=== PATIENT | male | born 1940 | race Caucasian/White ===

== ENCOUNTER 2017-05-10 02:25 | Day surgery (SDC) | payer MEDICARE, BC ==
[~2017-05-10] VITALS: Ht 172.7 cm; Wt 68.9 kg
[~2017-05-10 02:25] MED LIST: ACE325 PO; AMI25 PO; ASPI-1471 PO; ASPI-715 PO; ATOR40TA24 PO; BENA1TAB PO; BETA1CAP PO; BICA50TA36 PO; CHL10 PO; CIP500 PO; CIPR-214 PO; ENAL1TAB52 PO; FOL1 PO; GOLYTE PO; IBUP400T13 PO; LISI-362 PO; MULT-1 PO; MULT-27 PO; NOR5/325 PO; OMEG300C PO; SEN100 PO; SERT-179 PO; SIMV-1 PO; TAMS0.4C70 PO; [UNRECOGNIZED DRUG - CODE] PO; [UNRECOGNIZED DRUG - CODE] PO; [UNRECOGNIZED DRUG - MIXTURE] PO
[2017-05-10 06:13] VITALS: BP 123/61
[2017-05-10] MEDS ORDERED: LIDOCAINE/SOD BICARB 8.4% SYR ID ONE (06:50)
[2017-05-10] MEDS ORDERED: NORMOSOL R SOLN(*) 1000 ML BAG 1,000 ML IV PRN (06:50)
[2017-05-10] MEDS ORDERED: MIDAZOLAM 2 MG/2 ML VIAL IVP PRN (06:50)
[2017-05-10 08:39] VITALS: BP 132/70
[2017-05-10 08:45] VITALS: BP 137/69
--- NOTE | 2017-05-10 08:49 | Short(Outpt) Discharge Summary ---
Discharge Summary Reason for Hosp/Final Diag: (1) History of colon polyps Status: Chronic Hospital Course & Plan: Colonoscopy with polypectomy x6 completed without problems Departure Discharge to: Home, Self Care Discharge Instructions Home Meds Active Scripts Peg/Electrolytes (GOLYTELY SOLUTION) 4,000 Ml Soln, 1 GAL PO ONCE, #1 GAL 0 Refills Prov:MYLES HERNÁNDEZ MD 04/01/17 Reported Medications Aspirin (ASPIR 81) 81 Mg Tablet.dr, 81 MG PO QDAY, TAB 04/01/17 Mu-Vits-Min Th/Lycopene/Lutein (CENTRUM SILVER TABLET) 1 Each Tablet, 1 EACH PO QDAY 03/29/17 Lisinopril (LISINOPRIL) 10 Mg Tablet, 10 MG PO PRN, TAB take if systolic >150 03/01/16 Oliver-3 Fatty Acids (FISH OIL) 300 Mg Capsule, 300 MG PO DAILY, CAPSULE 08/08/15 Chlordiazepoxide Hcl (CHLORDIAZEPOXIDE HCL) 10 Mg Capsule, 10 MG PO HS, CAPSULE 08/08/15 Atorvastatin Calcium (LIPITOR) 40 Mg Tablet, 2 TAB PO QDAY, TAB 08/08/15 Amitriptyline Hcl (Elavil) 25 Mg Tab, 25 MG PO QHS, #30 0 Refills 11/21/10 Sertraline Hcl (Sertraline Hcl) 100 Mg Tablet, 100 MG PO DAILY, 0 Refills 11/03/10 Diet: Regular Activity: As Tolerated Special Instructions: Your colonoscopy was completed without any problems and your prep was excellent (Good Job!!). I removed 6 small polyps from your colon and rectum. None look cancerous but may be precancerous. My office will call you in the next week and let you know what the polyps are and when your next colonoscoy should be (either 3 or 5 years depending on the pathology results). MYLES HERNÁNDEZ MD May 10, 2017 08:49
[2017-05-10 09:01] VITALS: BP 140/61
[2017-05-10 09:31] VITALS: BP 119/76
[2017-05-10 09:34] VITALS: BP 133/100
== END 2017-05-10 09:48 | disposition home or self-care (01) ==
LOC: OR 02:25
PROVIDERS: ATTEND Surgery
DX: Z12.11 Encounter for screening for malignant neoplasm of colon (principal); D12.3 Benign neoplasm of transverse colon; K63.5 Polyp of colon; K62.1 Rectal polyp
CPT/HCPCS: 88305

== ENCOUNTER 2017-06-12 15:05 | Outpatient (RCR) | payer MEDICARE, BC ==
[2017-06-17] MEDS ORDERED: IOPAMIDOL 76% 50 ML INFUS BTL 50 ML ONE (07:47)
[2017-06-17] MEDS ORDERED: IOPAMIDOL 76% 75 ML INFUS BTL 75 ML ONE (07:47)
[2017-06-17] MEDS ORDERED: NS 0.9% 20 ML SDV 60 ML ONE (07:48)
--- NOTE | 2017-06-21 10:26 | RADIOLOGY IMAGING REPORT ---
FACILITY: [facility] [place] PATIENT NAME: Vikash Grijalva : 1940 MR: [id number] V: [id number] EXAM DATE: ORDERING PHYSICIAN: ELIAS GREGG TECHNOLOG[place]: [place] [facility] [place] Vikash G[place]alva : 1940 Visit/Account:[id number] Date of Sevice: 06/17/2017 ABDOMEN/PELVIS W/WO CONTRAST HISTORY: Hematuria TECHNIQUE: Axial images acquired through the abdomen/pelvis both with and without IV contrast.. Afia nal and sagittal reformatting also performed. Dose Lowering Technique One of the following dose optimization techniques was utilized in the performance of this exam: Autom ated exposure control; adjustment of the mA and/or kV according to the patient's size; or use of an i terative reconstruction technique. Specific details can be referenced in the facility's radiology C T exam operational policy. CONTRAST: 125 mL Isovue-370 COMPARISON: March 31, 2016 FINDINGS: Visualized lung bases: There are at least moderate coronary artery vascular calcifications incomplet nicky imaged is a potential nodule in the anterior inferior right upper lobe seen on image one of serie s 5. There is coarse septal thickening in the lower lung fuller. Hepatobiliary: Negative. Spleen: Negative. Adrenals: Negative. Pancreas: Negative. Kidneys ureters and bladder: The previously noted 1.4 cm hypoattenuating lesion in the mid left kidne y has slightly increased in size measuring 1.6 cm in diameter. This was apparently demonstrated to r epresent hemorrhagic or proteinaceous cyst on a prior MR. There is a 2.5 cm cyst upper pole the left kidney there are additional smaller cysts in both kidneys. There is a 1.3 x 0.8 cm stone in the right renal pelvis with mild fullness of the right renal collect ing system. There also appears to be slight increased density of the right peripelvic fat and fat st randing surrounding the proximal half of the right ureter Genitalia: There are coarse calcifications within the prostate gland GI: There is mild narrowing seen in the sigmoid colon best identified on image 121 of series 6. Thi s could represent an area of spasm although a small annular lesion not totally ruled out Vessels/spaces/nodes: There are moderate vascular calcifications and mild mural thrombus in the abdo corie aorta. Moderate callus occasions also noted in the branch vessels. Bones/soft tissues: There is a tiny umbilical hernia containing fat. Mild spondylotic changes of th e thoracolumbar spine Additional findings: None pertinent. IMPRESSION: There is a 1.3 x 0.8 cm stone in the right renal pelvis with mild fullness the right renal collecting system. There also appears to be slight increased density in the peripelvic fat on the right and fa t stranding surrounding the proximal half the right ureter. This could represent adjacent inflammati on and/or infection. Previously noted 1.4 cm hypoattenuating lesion mid left kidney is slightly increased in size now cb uring 1.6 centers in diameter. This was apparently demonstrated represent hemorrhagic or proteinaceo us cyst on a prior MR. Coarse septal thickening in the lower lung fuller likely chronic At least moderate vascular calcifications in the abdominal aorta and branch vessels also including th e coronary arteries Mild narrowing in the sigmoid colon as described above. This could represent an area of spasm althou gh small annular lesion not totally ruled out Report Dictated By: Hailey Nagy MD at 06/17/2017 10:54 AM Report E-Signed By: Hailey Nagy MD at 06/17/2017 11:22 AM WSN:[email or web address]
== END 2017-06-17 18:00 | disposition home or self-care (01) ==
LOC: CT 15:05
PROVIDERS: ATTEND Urology
DX: R31.0 Gross hematuria (principal); C61 Malignant neoplasm of prostate; Z92.3 Personal history of irradiation; N20.0 Calculus of kidney; I70.0 Atherosclerosis of aorta; N28.9 Disorder of kidney and ureter, unspecified
CPT/HCPCS: 36415; 74178; 82565; 87088; J7050; Q9967

== ENCOUNTER → 2017-06-12 | Outpatient (REF) | payer MEDICARE, BC | LOC: ZZSENDIN 17:29 | PROVIDERS: ATTEND Urology | DX: R31.1 Benign essential microscopic hematuria (principal) | CPT/HCPCS: 87088 ==

== ENCOUNTER 2017-06-24 00:54 | Day surgery (SDC) | payer MEDICARE, BC ==
--- NOTE | 2017-06-21 14:21 | HISTORY AND PHYSICAL ---
DATE OF ADMISSION: June 24, 2017 CHIEF COMPLAINT Right ureteral calculus and hematuria. HISTORY OF PRESENT ILLNESS The patient is a 77-year-old white male who was diagnosed with prostate cancer in early 2014 and subsequently underwent treatment with radiation therapy and androgen deprivation therapy for 18 months, who in routine follow up was noted to have significant microscopic hematuria. A CT scan was performed, which showed a 13 x 10 x 7 mm right renal pelvis/UPJ stone. The films were shown to the patient, his and daughter, and options were discussed. He has elected to undergo anesthetic cystoscopy to evaluate his bladder, as well as to undergo ureteral stent placement followed by ureteroscopy and/or extracorporeal shockwave lithotripsy. Of note, the patient had a prior CT scan performed in March of 2016, which showed no prior stones at that time. PAST MEDICAL HISTORY * Prostate cancer with current no evidence of disease. * Hypercholesterolemia. * Hypertension. * COPD. * Irritable bowel syndrome. * Depression. PAST SURGICAL HISTORY * Colonoscopy. * Hand surgery. CURRENT MEDICATIONS * Oxygen. * Hydrochlorothiazide. * Amitriptyline. * Lipitor. * Lisinopril. * Sertraline. * Baby aspirin. * Fish oil. ALLERGIES No known drug allergies. FAMILY HISTORY Noncontributory. SOCIAL HISTORY Patient lives in [place], [place]. He is . He does have tobacco use. REVIEW OF SYSTEMS Patient denies shortness of breath, nausea, vomiting, fever, chills, chest pain , productive cough, gross hematuria, prior history of stones or urinary tract infection. He does report mild right flank pain intermittently over the past several weeks. PHYSICAL EXAMINATION GENERAL: Patient is a well-developed, well-nourished white male in no acute distress. HEENT: Normocephalic, atraumatic. CHEST: Clear to auscultation bilaterally. CARDIOVASCULAR EXAM: Regular rate and rhythm. ABDOMINAL EXAM: Soft, nontender, no masses are palpated. EXAM: Deferred to the OR. EXTREMITY EXAM: Without clubbing, cyanosis or edema. NEUROLOGICAL EXAM: Nonfocal. IMPRESSION This is a 77-year-old white male with a new onset of microscopic hematuria found to have a large left UPJ/renal pelvis stone. In addition, he has smoking history and is two years status radiation treatment for his prostate. PLAN We will perform anesthetic cystoscopy with bladder biopsy as indicated followed by right ureteral stent placement with ESWL and/or ureteroscopy as indicated. MTDD
[~2017-06-24] VITALS: Ht 172.7 cm; Wt 68.5 kg
[2017-06-24 14:15] VITALS: BP 153/81
[2017-06-24] MEDS ORDERED: ceFAZolin(*) 1 GM VIAL 1 GM in NS(*) 0.9% 100 ML ADDVANT BAG 100 ML IVPB ONE (15:20)
[2017-06-24] MEDS ORDERED: LIDOCAINE/SOD BICARB 8.4% SYR ID ONE (15:20)
[2017-06-24] MEDS ORDERED: NORMOSOL R SOLN(*) 1000 ML BAG 1,000 ML IV PRN (15:20)
[2017-06-24] MEDS ORDERED: FAMOTIDINE 20 MG TAB PO ONE (15:20)
[2017-06-24] MEDS ORDERED: MIDAZOLAM 2 MG/2 ML VIAL IVP PRN (15:20)
--- NOTE | 2017-06-24 15:56 | RADIOLOGY IMAGING REPORT ---
[place] [facility] [place] NAME: Vikash Grijalva : 1940 MR: [id number] V: [id number] EXAM DATE: ORDERING PHYSICIAN: ELIAS GREGG TECHNOLOGIST: Location: [facility] Patient: Vikash Grijalva : 1940 Visit/Account:[id number] Date of Sevice: 06/24/2017 ABDOMEN PELVIS ESWL CYSTO W/O HISTORY: Kidney stones TECHNIQUE: Axial images were obtained through the abdomen and pelvis without intravenous contrast . One of the following dose optimization techniques was utilized in the performance of this exam: autom ated exposure control; adjustment of the mA and/or kv according to patient size; or use of iterative reconstruction technique. Specific details can be referenced in the facility's radiology CT exam oper ational policy. CONTRAST: None COMPARISON: CT 06/17/2017 FINDINGS: Visualized lung bases: Mild basilar reticular opacities and platelike atelectasis. Hepatobiliary: Negative. Spleen: Negative. Adrenals: Negative. Pancreas: Negative. Kidneys/ureters/bladder: Prior 11 x 9 x 8 mm calculus within the right renal pelvis has migrated to the right UPJ with mild right hydronephrosis. Mild right perinephric stranding. There are 3 tiny no nobstructing left renal calculi measuring up to 1-2 mm. No left ureteral calculus. No left hydronep hrosis. No bladder calculus. Simple appearing left upper pole renal cyst measuring 2.6 x 2.0 cm. H igh attenuation left lower pole lesion measuring 1.7 x 1.6 cm which is likely a hemorrhagic cyst. Bowel/peritoneum/mesentery: Negative. Vessels: Mild arterial calcifications. Lymph nodes: Negative. Pelvic genitourinary: Negative. Bones/body wall: Negative. Other findings: None significant IMPRESSION: 1. A prior 11 x 9 x 8mm calculus within the right renal pelvis has migrated to the right UPJ with mi ld right hydronephrosis and perinephric stranding. Report Dictated By: Rick Pérez MD at 06/24/2017 3:35 PM Report E-Signed By: Rick Pérez MD at 06/24/2017 3:51 PM WSN:[email or web address]
[2017-06-24] MEDS ORDERED: fentaNYL CITR 100 MCG/2 ML AMP ONE (16:12)
[2017-06-24] MEDS ORDERED: LIDOCAINE MPF 1% 5 ML VIAL ONE (16:13)
[2017-06-24] MEDS ORDERED: PROPOFOL EMUL(*) 10MG/ML 20 ML 20 ML ONE (16:13)
[2017-06-24] MEDS ORDERED: DEXAMETHASONE SOD 4 MG/ML VIAL ONE (17:54)
[2017-06-24] MEDS ORDERED: ONDANSETRON 4 MG/2 ML VIAL ONE (17:55)
[2017-06-24] MEDS ORDERED: KETOROLAC 30 MG/ML VIAL ONE (19:03)
[2017-06-24] MEDS ORDERED: PHEN200T32 PO (19:53)
[2017-06-24] MEDS ORDERED: TAMS0.4C25 PO (19:54)
[2017-06-24] MEDS ORDERED: OXYB10TA21 PO (19:54)
[2017-06-24] MEDS ORDERED: HYDR-385 PO (19:55)
[2017-06-24] MEDS ORDERED: DOCU-416 PO (19:56)
[2017-06-24 20:00] VITALS: BP 167/75
[2017-06-24 20:15] VITALS: BP 145/77
[2017-06-24 20:26] VITALS: BP 135/77
[2017-06-24 20:29] VITALS: BP 134/60
--- NOTE | 2017-06-25 18:49 | OPERATIVE REPORT 1 ---
EVENT DATE: June 24, 2017 SURGEON: Pascual Bradford MD ANESTHESIOLOGIST: Delfin Redd MD ANESTHESIA: General anesthetic. PREOPERATIVE DIAGNOSIS Right renal pelvis 13 x 10 x 7 mm stone. POSTOPERATIVE DIAGNOSIS Right renal pelvis 13 x 10 x 7 mm stone. PROCEDURES PERFORMED 1. Cystoscopy. 2. Right retrograde internal double-J ureteral stent placement. 3. Right renal extracorporeal shock wave lithotripsy. ESTIMATED BLOOD LOSS Minimal. INTRAVENOUS FLUIDS Crystalloid. DRAINS Contour stent 6-Austrian x 26 cm on right. PATHOLOGY None. COMPLICATIONS None. CONDITION The patient was taken to the recovery room awake and in stable condition. STATEMENT OF MEDICAL NECESSITY The patient is a 77-year-old white gentleman with a history of prostate cancer who recently noted an episode of significant microscopic hematuria on routine followup in the clinic. A CT scan performed showed a 13 x 10 x 7 mm right UPJ stone. He is now being brought to the operating room for planned stent placement, followed by extracorporeal shock wave lithotripsy. DESCRIPTION OF PROCEDURE PERFORMED The patient was brought to the operating room. After general anesthetic was obtained, he was placed in the dorsal lithotomy position and prepped and draped in the usual sterile manner. Anesthetic cystoscopy was performed with the 21- Austrian rigid sheath and both 30- and 70-degree lenses. He had a normal- appearing, pendulous bulbar membranous and prostatic urethra. His bladder neck was widely open. There were no significant abnormalities noted in the urethra. His bladder mucosa appeared normal. It was smooth, without lesions or abnormalities. He had slit-like ureteral orifices, both effluxing clear urine. At this point, the right ureteral orifice was cannulated with a 6-Austrian open- end access catheter which was advanced up to the mid ureter. A 0.035 wire was advanced up the lumen of the access catheter and coiled in the upper pole calyx by fluoroscopic imaging. The access catheter was removed, and the wire was then used to place a 6-Austrian x 26 cm Contour stent. The wire was removed. He was noted to have good coiling in the renal pelvis by fluoroscopy and good coiling in the bladder by direct vision. The patient's bladder was drained through the cystoscopic sheath. He was then placed supine on the lithotripsy table. His right renal pelvis stone was in place in the lithotripsy crosshairs in two planes. Treatment was begun at a power setting of 3 for the first 300 shocks. A three-minute pause was then performed, and then treatment resumed. He received a total of 3000 shocks to the right renal pelvis. Intermittent two- plane fluoroscopy was used to ensure the crosshairs remained on the stone and stone fragment pile. At the conclusion of treatment, no significant fragments could be identified. He was then awakened in the operating room and taken to the recovery area in stable condition. PLAN The plan is to allow the patient to be discharged home today on [place], Colace, Flomax, Ditropan XL, and Pyridium. We will plan to see him in the Urology Clinic in six to eight weeks with a followup low-dose CT scan to evaluate treatment results. If he is deemed stone-free, we will remove his stent in the office. If not, we will return to the operating room for possible ureteroscopy or ESWL as indicated with stent removal at that time. OMERO
== END 2017-06-24 20:00 | disposition home or self-care (01) ==
LOC: OR 00:54
PROVIDERS: ATTEND Urology
DX: N20.0 Calculus of kidney (principal)
CPT/HCPCS: 50590; 52332; 74176; A9270; C1758; C1769; C1894; C2617; J0690; J1100; J1885; J2001; J2405; J2704; J3010; J7050

== ENCOUNTER → 2017-08-06 | Outpatient (CLI) | payer MEDICARE, BC ==
[~2017-08-06] MED LIST changes: +DOCU-416 PO; +HYDR-385 PO; +OXYB10TA21 PO; +PHEN200T32 PO; +TAMS0.4C25 PO
--- NOTE | 2017-08-06 08:47 | RADIOLOGY IMAGING REPORT ---
FACILITY: [facility] [place] PATIENT NAME: Vikash Grijalva : 1940 MR: [id number] V: [id number] EXAM DATE: ORDERING PHYSICIAN: ELIAS GREGG TECHNOLOGIST: Location: [facility] [place] Patient: Vikash Grijalva : 1940 Visit/Account:[id number] Date of Sevice: 08/06/2017 ABDOMEN PELVIS ESWL CYSTO W/O EXAMINATION: CT abdomen without IV contrast CT pelvis with IV contrast HISTORY: Status post ESWL TECHNIQUE: CT scan of the abdomen and pelvis performed from the lung base through pubic symphysis fol lowed by scan from lung base through pubic symphysis after administration of IV contrast. COMPARISON STUDIES: 06/24/2017 One of the following dose optimization techniques was utilized in the performance of this exam: Autom ated exposure control; adjustment of the mA and/or kV according to the patient's size; or use of an i terative reconstruction technique. Specific details can be referenced in the facility's radiology C T exam operational policy. FINDINGS: Please note that this exam was tailored for detection of urinary stones. Portions of the upper abdome n may not be included. Also, with intravenous contrast, sensitivity to detection of parenchymal disea se is limited. Liver/Biliary: Negative Pancreas: Negative Spleen: Negative Adrenal glands: Negative Kidneys/Retroperitoneum: Double-J ureteral stent within the right kidney. Mild persistent right hydr onephrosis. Persistent perinephric stranding and periureteral stranding and inflammation along the c ourse of the ureter similar to the previous CT scan from 06/24/2017. The previously seen and describe d 11 mm stone in the right renal pelvis is no longer evident. No obvious stone fragments evident wit hin the collecting system or ureter. Several small perceived 2 mm punctate densities in middle and l ower pole calyceal groups best seen on coronal image 81. Several small nonobstructing 3 mm stones in the left kidney. Simple appearing cyst projecting from t he upper pole of the left kidney measuring 2.3 cm. There is also a hyperdense lesion projecting from the cortex of the left kidney in the lower pole measuring approximately 1.7 cm in greatest dimension . It is increased attenuation and likely represents a proteinaceous/hemorrhagic cyst. Pelvic structures: Negative Bowel/peritoneum/mesenteries: No colonic mass lesions. No bowel inflammation. Vessels: Minimal focal aneurysmal dilatation of the infrarenal aorta measuring up to 2.5 cm in dimens ion Musculoskeletal/body wall: Negative Lymph node assessment: Negative Lower chest: Negative IMPRESSION: 1. Previously seen and described 11 mm right renal pelvic stone no longer visualized with a right ur eteral stent well-positioned within the kidney. 2. Several punctate 2 mm parenchymal densities within the mid and lower pole calyceal system. 3. Nonobstructing 2 -3 mm stones in the left kidney Report Dictated By: Marky Machuca MD at 08/06/2017 8:33 AM Report E-Signed By: Marky Machuca MD at 08/06/2017 8:43 AM QUIRINON:BELÉN
== END ==
LOC: CT 02:27
PROVIDERS: ATTEND Urology
DX: N20.0 Calculus of kidney (principal); Z96.0 Presence of urogenital implants
CPT/HCPCS: 74176

== ENCOUNTER → 2017-08-07 | Outpatient (REF) | payer MEDICARE, BC | LOC: ZZSENDIN 11:00 | PROVIDERS: ATTEND Urology | DX: N20.0 Calculus of kidney (principal) | CPT/HCPCS: 82365; 88300 ==

== ENCOUNTER → 2017-08-09 | Outpatient (CLI) | payer MEDICARE, BC | LOC: RESP 05:45 | PROVIDERS: ATTEND Family Medicine | DX: J44.9 Chronic obstructive pulmonary disease, unspecified (principal) | CPT/HCPCS: 94060; 94729 ==

== ENCOUNTER → 2017-10-01 | Outpatient (CLI) | payer MEDICARE, BC | LOC: LAB 13:05 | PROVIDERS: ATTEND Urology | DX: C61 Malignant neoplasm of prostate (principal); N20.0 Calculus of kidney | CPT/HCPCS: 36415; 84153 ==

== ENCOUNTER → 2017-10-03 | Outpatient (RCR) | payer MEDICARE, BC ==
[~2017-10-03] MED LIST changes: +AMIT-106 PO
== END ==
LOC: RESP 08-29 15:06
PROVIDERS: ATTEND Family Medicine
DX: J98.09 Other diseases of bronchus, not elsewhere classified (principal); R09.02 Hypoxemia
CPT/HCPCS: 94618; G0239

== ENCOUNTER 2017-10-08 10:41 | Outpatient (RCR) | payer MEDICARE, BC ==
[~2017-10-08 10:41] MED LIST changes: -AMIT-106 PO
[2017-10-08] MEDS ORDERED: AMIT-106 PO (15:06)
[2017-10-08] MEDS ORDERED: CHL10 PO (15:06)
== END 2017-10-22 09:50 | disposition home or self-care (01) ==
LOC: RAON 10:41
PROVIDERS: ATTEND Radiology Radiation Oncology
DX: C61 Malignant neoplasm of prostate (principal)
CPT/HCPCS: 99212

== ENCOUNTER → 2017-10-09 | Outpatient (CLI) | payer MEDICARE, BC ==
[~2017-10-09] MED LIST changes: +AMIT-106 PO
--- NOTE | 2017-10-09 10:44 | RADIOLOGY IMAGING REPORT ---
FACILITY: [facility] PATIENT NAME: Vikash Grijalva : 1940 MR: [id number] V: [id number] EXAM DATE: ORDERING PHYSICIAN: ELIAS GREGG TECHNOLOGIST: Location: [facility] Patient: Vikash Grijalva : 1940 Visit/Account:[id number] Date of Sevice: 10/09/2017 ABDOMEN PELVIS ESWL CYSTO W/O HISTORY: Prostate cancer, kidney stones TECHNIQUE: Axial images acquired through the abdomen/pelvis. Coronal and sagittal reformatting also performed. No IV contrast administered. Dose Lowering Technique One of the following dose optimization techniques was utilized in the performance of this exam: Autom ated exposure control; adjustment of the mA and/or kV according to the patient's size; or use of an i terative reconstruction technique. Specific details can be referenced in the facility's radiology C T exam operational policy. COMPARISON: August 06, 2017 FINDINGS: Visualized lung bases: There is coarse linear scarring in the lung bases Hepatobiliary: Negative. Spleen: Negative. Adrenals: Negative. Pancreas: Negative. Kidneys ureters and bladder: The previously noted right ureteral stent is no longer seen. There is a 2 mm nonobstructing calculus upper pole calyx of the right kidney a 1 mm nonobstructing calculus mid pole calyx of the right kidney and a 1 mm nonobstructing calculus lower pole calyx of the right kid avila. There is a 1 mm nonobstructing calculus upper pole calyx of the left kidney and 2 mm and 1 mm obstruc ting calculi lower pole calyces of the left kidney. 2.4 cm simple cyst upper pole of the left kidney again noted. There is a 1.7 cm hyperdense mass proj ecting from the lower pole of the left kidney that appears stable when compared to most recent study. . When compared to prior CT from April 16, 2012 this has increased in size from 1 cm previously. This has however been previously demonstrated to represent hemorrhagic or proteinaceous cyst by prior MR the abdomen dated June 21, 2014 Genitalia: There are coarse calcifications within the inhomogeneous prostate gland GI: The appendix is mildly thickened at 7.5 mm although no surrounding inflammatory changes seen. T his appears stable when compared the prior study likely represents a chronic finding Vessels/spaces/nodes: There are moderate vascular calcifications seen throughout the abdomen and pel vis. Small focal dilatation of the infrarenal abdominal aorta measuring 2.5 cm in diameter appears s table Bones/soft tissues: There is a tiny umbilical hernia containing fat. No aggressive appearing bone l esions are seen. Additional findings: None pertinent. IMPRESSION: Nonobstructing calculi in both renal collecting systems 2.4 cm simple cyst upper pole the left kidney 1.7 cm hyperdense mass lower pole the left kidney has increased in size when compared to chest 12 alt beau has been shown previously to represent hemorrhagic or proteinaceous cyst by prior MR. The appendix is mildly thickened at 7.5 mm although no surrounding inflammatory changes seen. This a ppears stable when compared to the prior study likely representing a chronic finding Moderate vascular calcifications about the abdomen and pelvis. Small focal dilatation of infrarenal abdominal aorta has remained stable Report Dictated By: Hailey Nagy MD at 10/09/2017 10:18 AM Report E-Signed By: Hailey Nagy MD at 10/09/2017 10:41 AM WSN:[email or web address]
== END ==
LOC: CT 01:26
PROVIDERS: ATTEND Urology
DX: N20.0 Calculus of kidney (principal); R91.8 Other nonspecific abnormal finding of lung field; N28.1 Cyst of kidney, acquired; N42.0 Calculus of prostate; I25.10 Atherosclerotic heart disease of native coronary artery without angina pectoris; K42.9 Umbilical hernia without obstruction or gangrene
CPT/HCPCS: 74176

== ENCOUNTER → 2017-11-12 | Outpatient (RCR) | payer MEDICARE, BC | LOC: RESP 10-08 09:00 | PROVIDERS: ATTEND Family Medicine | DX: J98.09 Other diseases of bronchus, not elsewhere classified (principal); R09.02 Hypoxemia | CPT/HCPCS: 94618; 94667; G0239 ==

== ENCOUNTER 2018-04-02 08:19 | Outpatient (RCR) | payer MEDICARE, BC ==
[~2018-04-02 08:19] MED LIST changes: -BICA50TA36 PO; +BICA50TA41 PO
--- NOTE | 2018-04-08 15:02 | RADIOLOGY IMAGING REPORT ---
FACILITY: [facility] PATIENT NAME: Vikash Grijalva : 1940 MR: [id number] V: [id number] EXAM DATE: ORDERING PHYSICIAN: ELIAS GREGG TECHNOLOGIST: Location: [facility] Patient: Vikash Grijalva : 1940 Visit/Account:[id number] Date of Sevice: 04/08/2018 ABDOMEN PELVIS ESWL CYSTO W/O Indication: History of prostate cancer, kidney stones. COMPARISON STUDIES: CT abdomen and pelvis 10/09/2017. TECHNIQUE: Noncontrast CT lung bases to the pubic symphysis obtained. One of the following dose optimization techniques was utilized in the performance of this exam: autom ated exposure control; adjustment of the mA and/or kV according to the patient's size; or use of an i terative reconstruction technique. Specific details can be referenced in the facility's radiology CT exam operational policy. FINDINGS: Liver / gallbladder: The liver demonstrates normal attenuation. Gallbladder is unremarkable. Pancreas: Pancreas is unremarkable. Spleen: Normal. Adrenal glands: Normal. Kidneys: There is a simple cyst upper pole of the left kidney, 2.6 cm. In the lower pole, there is an exophytic mass, 1.7 cm, which is similar to prior CT 03/31/2016 consistent with a proteinaceous cy st. There is no suspicious mass. Right kidney is normal. There are 2 small calculi on the right kidney, each measuring between 1 and 2 mm. There is a nonobst ructing 2 mm calculus in the left kidney. There is no evidence of a right or left ureteral calculus. Pelvis: Urinary bladder is normal. Small calcifications in the prostate. There is no evidence of a denopathy in the right or left internal or external iliac chain. Bowel: There is no focal abnormality in the small bowel or colon. Vessels: Atherosclerotic changes seen in the abdominal aorta and arteries of the pelvis. Musculoskeletal / Body wall: There are no lytic or blastic bone lesions. Soft tissues are normal. Lymph node assessment: Negative Lower chest: Negative IMPRESSION: 1. Simple cyst and proteinaceous cyst left kidney, unchanged from 03/31/2016. 2. Atherosclerotic changes abdominal aorta. 3. No evidence of retroperitoneal or pelvic adenopathy. Report Dictated By: Reggie Magallanes at 04/08/2018 2:50 PM Report E-Signed By: Reggie Magallanes at 04/08/2018 2:57 PM WSN:[email or web address]
== END 2018-04-08 18:00 | disposition home or self-care (01) ==
LOC: CT 08:19 → EDSTATUS 08:19 → CT 04-08 18:00
PROVIDERS: ATTEND Urology
DX: N20.0 Calculus of kidney (principal); C61 Malignant neoplasm of prostate
CPT/HCPCS: 36415; 74176; 84153

== ENCOUNTER 2018-09-23 11:15 | Outpatient (RCR) | payer MEDICARE, BC ==
--- NOTE | 2018-08-12 12:53 | PT INITIAL EVALUATION ---
MEDICAL DIAGNOSIS: M25.511 R shoulder pain TREATMENT DIAGNOSIS: Same DATE OF ONSET: 02/09/18 SUBJECTIVE: Vikash Grijalva (Ed) presents to PT for R upper shoulder pain after attempting to lift his , who fell at home 02/09/2018. He reports he'd strained both shoulders, the L shoulder pain resolved but he's left with lingering R UT ache. Quick DASH 7%. He's left-handed.. . Pain location is R superior shoulder and described as ache. Pain scale is 4 on a ten point pain scale. Pain is worse with turning onto R side in bed, trying to sleep and better with rest. 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 Participates in pulmonary rehab, independent in all ADL's. OBJECTIVE: Posture: R scapula is 2" higher than L, more protracted R shoulder compared to L. ROM: Shoulder AROM, in degrees, flexion R 125, L 135, scaption R 125, L 150, ER B 80 deg, IR B T8. Thoracic AROM restricted in R rotation and R SB. Strength: B rotator cuffs, biceps 5-/5, no shoulder pain. Palpation: Painful, tight R LS, UT. Special Tests: R scapulothoracic joint bound at cuauhtemoc superior scapular angle and medial border, hypomobile R inferior, posterior glenohumeral joint. Negative crank, scour, AC joint clearing tests. ASSESSMENT: Vikash Grijalva presents with mild adhesive capsulitis, reduced spinal ROM, altered posture affecting R shoulder side lie loading. He had an improvement of AROM R shoulder after manual therapy today. Short Term Goals/Patient's Goals One month: Don rolls onto his R shoulder at night pain free. PLAN: Patient to be seen for Manual Therapy, Strengthening, Ice/Heat, Range of Motion, Stretching, Neuromuscular Re-ed, Electrical Stim, Gait Trg/Balance Trg, Home Exercise Program 2x/Week for 4 Weeks Thank you for this referral. If you have any questions, comments, or concerns about this report or plan, please contact me at . Physician signature date MTDD
--- NOTE | 2018-09-09 13:04 | PT PLAN OF CARE ---
Physician: Dr. Babak Dawkins Patient is being seen: 2x/week Therapist: Bernadette Quinn PT Medical Diagnosis: M25.511 R shoulder pain Treatment Diagnosis: Same Date of Onset: 02/09/18 Date of Initial Evaluation: 08/12/18 Date patient was last seen: 09/04/18 Number of treatments: 8 Number of cancellations/No shows: 0 INTERVENTIONS: Manual Therapy, Therapeutic Exercise, E-stim, Heat GOALS/PATIENT'S GOAL: One month: Ed rolls onto his R shoulder at night pain free. met New Goal: Ed lifts heavy groceries, does yard work without L shoulder pain. Patient Compliance: Excellent Prognosis: Excellent Reasons for continuing therapy: S: Ed reports his R shoulder no longer hurts at night. He's doing yard work but finds heavy lifting is difficult with his R shoulder. Quick DASH 2%. O: B shoulder AROM WNL, B pain free. Strength: R supraspinatus and infraspinatus 4+/5, otherwise R shoulder 5/5. Other: Improved L shoulder joints mobility, tight anterior chest muscles still. A/P: Don Grijalva has improved ROM, strength and is advancing function to heavy lifting, but finds this difficult. If you agree, we'll continue 2x/week for up to 4 weeks with higher level strengthening, strengthening, HEP. Thank you. Dr. Babak Dawkins date [facility]
--- NOTE | 2018-09-16 12:10 | PT PLAN OF CARE ---
Physician: Dr. Babak Dawkins Patient is being seen: 2x/week Therapist: Bernadette Quinn PT Medical Diagnosis: M25.511 R shoulder pain Treatment Diagnosis: Same Date of Onset: 02/09/18 Date of Initial Evaluation: 08/12/18 Date patient was last seen: 09/11/18 Number of treatments: 11 Number of cancellations/No shows: 0 INTERVENTIONS: Manual Therapy, Strengthening,, Ice/Heat, Range of Motion/Stretching, Electrical Stim, Home Exercise Program GOALS/PATIENT'S GOAL: One month: Ed rolls onto his R shoulder at night pain free. met Patient Compliance: Excellent Prognosis: Excellent Reasons for continuing therapy: S: Ed reports he can roll onto his R shoulder at night without pain. He's doing yard work without R shoulder pain. Posture: R scapula is even L. Quick DASH 0% impairment. ROM: R shoulder AROM, in degrees, flexion, scaption 155, ER 80 deg, IR T8. Strength: B ER, supraspinatus 5-/5, IR 5/5. Mobility: Improved shoulder joints mobility. A/P: Ed Valentine has improved ROM/flexibility, needs to continue strengthening, He needs exercise review for strengthening. If you agree, we'll continue another week to work HEP technique, then DC PT to HEP. Thank you. Dr. Babak Dawkins date [facility]
[~2018-09-23 11:15] MED LIST changes: +ERGO800010 PO; -[UNRECOGNIZED DRUG - CODE] PO
--- NOTE | 2018-09-24 08:57 | PT PLAN OF CARE ---
Physician: Dr. Babak Dawkins Patient is being seen: 2x/week Therapist: Bernadette Quinn PT Medical Diagnosis: M25.511 R shoulder pain Treatment Diagnosis: Same Date of Onset: 02/09/18 Date of Initial Evaluation: 08/12/18 Date patient was last seen: 09/23/18 Number of treatments: 13 Number of cancellations/No shows: 0 INTERVENTIONS: Manual Therapy, Strengthening, Range of Motion, Stretching, Home Exercise Program GOALS/PATIENT'S GOAL: One month: Ed rolls onto his R shoulder at night pain free. met Patient Compliance: Excellent Prognosis: Excellent Reasons for discontinuing therapy: S: Ed relates his R shoulder is pain free all the time, he can roll on it at night without pain. He's using his R shoulder as before his injury. Quick DASH 0% impairment. Posture: Even R shoulder posture compared to L. ROM: Shoulder AROM WNL all directions. Strength: B rotator cuffs, biceps improved to 5/5, no shoulder pain. Palpation: Unremarkable about the R shoulder. Special Tests: Improved R shoulder joint mobility. A/P: Ed Valentine has normalized L shoulder strength, ROM, joint mobility and no longer has R shoulder pain with ADL's, sleeping. I'll DC PT to HEP. Thank you. OMERO
== END 2018-09-23 18:00 | disposition home or self-care (01) ==
LOC: PT 11:15
PROVIDERS: ATTEND Family Medicine
DX: M25.511 Pain in right shoulder (principal)
CPT/HCPCS: 97010; 97110; 97140; 97161; G0283

== ENCOUNTER → 2018-09-24 | Outpatient (CLI) | payer MEDICARE, BC ==
[2018-09-24 08:35] LABS: PLATELET COUNT, AUTOMATED 197 K/uL (150-450)
--- NOTE | 2018-09-24 08:41 | EKG ---
FACILITY: [facility] PATIENT NAME: ROSETTA OCHOA : [id number] MR: [id number] V: [id number] EXAM DATE: ORDERING PHYSICIAN: MYLES CARLSON TECHNOLOGIST: MONTSERRAT Buckner Reason : PREOP-EYES Blood Pressure : / mmHG Vent. Rate : 061 BPM Atrial Rate : 061 BPM P-R Int : 164 ms QRS Dur : 102 ms QT Int : 420 ms P-R-T Axes : 043 004 047 degrees QTc Int : 422 ms Normal sinus rhythm Normal ECG No previous ECGs available Confirmed by JOAN BUTLER ([id number]) on 09/24/2018 7:00:11 PM Referred By: ROBYN Confirmed By:JOAN BUTLER
== END ==
LOC: LAB 08:14
PROVIDERS: ATTEND Anesthesiology
DX: Z01.812 Encounter for preprocedural laboratory examination (principal); Z01.810 Encounter for preprocedural cardiovascular examination; G24.5 Blepharospasm; H02.059 Trichiasis without entropion unspecified eye, unspecified eyelid
CPT/HCPCS: 36415; 82040; 82247; 82310; 82374; 82435; 82565; 82947; 84075; 84132; 84155; 84295; 84450; 84460; 84520; 85025; 93005

== ENCOUNTER 2018-10-19 15:54 | Emergency (ER) | payer MEDICARE, BC ==
--- NOTE | 2018-10-19 16:00 | ER Report ---
History and Physical Time Seen By MD: 16:00 HPI/ROS CHIEF COMPLAINT: Cough HISTORY OF PRESENT ILLNESS: Patient is a 78-year-old male here with complaints of cough, shortness of breath without chest pain. Patient does wear 3 L nasal cannula supplemental oxygen at baseline, is an active smoker. Patient denies using nebulizer treatments, inhalers at home. Patient reports several days he has become more short of breath than baseline. He does report a cough productive of vilchis sputum. Patient is afebrile, hemodynamically stable at time of evalu ation. REVIEW OF SYSTEMS: Constitutional: No fever, no chills. Eyes: No discharge. ENT: No sore throat. Cardiovascular: No chest pain, no palpitations. Respiratory: + cough, + shortness of breath. Gastrointestinal: No abdominal pain, no vomiting. Genitourinary: No hematuria. Musculoskeletal: No back pain. Skin: No rashes. Neurological: No headache. Allergies: Coded Allergies: No Known Drug Allergies (Verified , 10/19/18) Home Meds Active Scripts Albuterol Sulfate (PROVENTIL HFA) 6.7 Gm Inh, 2 PUFF INH Q4-6H PRN for DYSPNEA, #1 INH Prov:WARRENNIR HANEYLAS S DO 10/19/18 Prednisone (PREDNISONE) 50 Mg Tablet, 50 MG PO QDAY for 4 Days, #4 TAB Prov:WARRENNIRFRANK S DO 10/19/18 Azithromycin (ZITHROMAX) 250 Mg Tablet, 1 TAB PO QDAY for 4 Days, #4 TAB Prov:WARREN,FRANK S DO 10/19/18 Reported Medications Chlordiazepoxide Hcl (CHLORDIAZEPOXIDE HCL) 10 Mg Capsule, 10 MG PO HS, CAPSULE 10/08/17 Amitriptyline Hcl (AMITRIPTYLINE HCL) 25 Mg Tablet, 25 MG PO QHS, #5 TAB 10/08/17 Aspirin (ASPIR 81) 81 Mg Tablet.dr, 81 MG PO QDAY, TAB 04/01/17 Mu-Vits-Min Th/Lycopene/Lutein (CENTRUM SILVER TABLET) 1 Each Tablet, 1 EACH PO QDAY 03/29/17 Lisinopril (LISINOPRIL) 10 Mg Tablet, 10 MG PO PRN, TAB take if systolic >150 03/01/16 [place]-3 Fatty Acids (FISH OIL) 300 Mg Capsule, 300 MG PO DAILY, CAPSULE 08/08/15 Sertraline Hcl (Sertraline Hcl) 100 Mg Tablet, 100 MG PO DAILY, 0 Refills 11/03/10 Discontinued Reported Medications Docusate Sodium (COLACE) 100 Mg Capsule, 100 MG PO PRN, #30 CAPSULE 06/24/17 Tamsulosin Hcl (FLOMAX) 0.4 Mg Cap.er.24h, 0.4 MG PO PRN, CAP TAKE WITH FOOD 06/24/17 Hx Smoking: Yes (0.5 ppd) Smoking Status: Current: Every Day Smoker Exposure to Second Hand Smoke?: No Hx Substance Use Disorder: No Hx Alcohol Use: Yes (quit in 1983) Constitutional Vital Sign - Last 24 Hours 10/19/18 10/19/18 16:02 16:05 Temp 97.2 Pulse 71 Resp 20 B/P (MAP) 148/69 Pulse Ox 96 O2 Delivery Nasal Cannula O2 Flow Rate 3.0 Physical Exam General Appearance: The patient is alert, has no immediate need for airway protection and no signs of toxicity. No acute distress Eyes: Pupils equal and round no pallor or injection. ENT, Mouth: Mucous membranes are moist. Respiratory: Scant wheezing Cardiovascular: Regular rate and rhythm. Gastrointestinal: Abdomen is soft and non tender, no masses, bowel sounds norm al. Neurological: No focal neurological deficits on examination Skin: Warm and dry, no rashes. Musculoskeletal: Neck is supple non tender. Extremities are nontender, nonswollen and have full range of motion. DIFFERENTIAL DIAGNOSIS: After history and physical exam differential diagnosis was considered for shortness of breath including but not limited to pulmonary infectious process, COPD, asthma, pulmonary embolus and congestive heart failure. Medical Decision Making Data Points Result Diagram: 10/19/18 1617 10/19/18 1617 Laboratory Hematology Test 10/19/18 16:17 Red Blood Count 4.49 M/uL (4.00-5.60) Mean Corpuscular Volume 96.6 fL (80.0-96.0) Mean Corpuscular Hemoglobin 33.1 pg (26.0-33.0) Mean Corpuscular Hemoglobin Concent 34.2 g/dL (32.0-36.0) Red Cell Distribution Width 14.7 % (11.5-14.5) Mean Platelet Volume 8.1 fL (7.2-11.1) Neutrophils (%) (Auto) 62.3 % (39.4-72.5) Lymphocytes (%) (Auto) 18.4 % (17.6-49.6) Monocytes (%) (Auto) 14.3 % (4.1-12.4) Eosinophils (%) (Auto) 4.6 % (0.4-6.7) Basophils (%) (Auto) 0.4 % (0.3-1.4) Nucleated RBC Relative Count (auto) 0.0 /100WBC Neutrophils # (Auto) 4.4 K/uL (2.0-7.4) Lymphocytes # (Auto) 1.3 K/uL (1.3-3.6) Monocytes # (Auto) 1.0 K/uL (0.3-1.0) Eosinophils # (Auto) 0.3 K/uL (0.0-0.5) Basophils # (Auto) 0.0 K/uL (0.0-0.1) Nucleated RBC Absolute Count (auto) 0.00 K/uL Prothrombin Time 12.0 seconds (12.0-14.4) Prothromb Time International Ratio 0.89 Activated Partial Thromboplast Time 28 seconds (23-35) Blood Gas Patient Temperature 97.2 DEGREES Venous Blood pH 7.36 (7.31-7.41) Venous Blood Partial Pressure CO2 49 mmHg Venous Blood Partial Pressure O2 < 35 mmHg Venous Blood HCO3 28 mmol/L Venous Blood Oxygen Saturation 54 % Venous Blood Base Excess 2 mmol/L Oxygen Liters/Minute 3l Sodium Level 139 mmol/L (137-145) Potassium Level 4.3 mmol/L (3.5-5.0) Chloride Level 103 mmol/L (98-107) Carbon Dioxide Level 28 mmol/L (22-30) Blood Urea Nitrogen 17 mg/dl (9-21) Creatinine 1.00 mg/dl (0.66-1.25) Glomerular Filtration Rate Calc > 60.0 Random Glucose 88 mg/dl (75-110) Lactate 1.2 mmol/L (0.7-2.1) Calcium Level 9.4 mg/dl (8.4-10.2) Total Bilirubin 0.4 mg/dl (0.2-1.3) Aspartate Amino Transf (AST/SGOT) 32 U/L (0-35) Alanine Aminotransferase (ALT/SGPT) 55 U/L (0-56) Alkaline Phosphatase 80 U/L (0-126) Troponin I < 0.012 ng/ml B-Type Natriuretic Peptide 11 pg/ml (0-100) Total Protein 6.8 g/dl (6.3-8.2) Albumin 3.8 g/dl (3.5-5.0) Chemistry Test 10/19/18 16:17 White Blood Count 7.1 k/uL (4.5-11.0) Red Blood Count 4.49 M/uL (4.00-5.60) Hemoglobin 14.8 g/dL (14.0-18.0) Hematocrit 43.3 % (42.0-52.0) Mean Corpuscular Volume 96.6 fL (80.0-96.0) Mean Corpuscular Hemoglobin 33.1 pg (26.0-33.0) Mean Corpuscular Hemoglobin Concent 34.2 g/dL (32.0-36.0) Red Cell Distribution Width 14.7 % (11.5-14.5) Platelet Count 189 K/uL (150-450) Mean Platelet Volume 8.1 fL (7.2-11.1) Neutrophils (%) (Auto) 62.3 % (39.4-72.5) Lymphocytes (%) (Auto) 18.4 % (17.6-49.6) Monocytes (%) (Auto) 14.3 % (4.1-12.4) Eosinophils (%) (Auto) 4.6 % (0.4-6.7) Basophils (%) (Auto) 0.4 % (0.3-1.4) Nucleated RBC Relative Count (auto) 0.0 /100WBC Neutrophils # (Auto) 4.4 K/uL (2.0-7.4) Lymphocytes # (Auto) 1.3 K/uL (1.3-3.6) Monocytes # (Auto) 1.0 K/uL (0.3-1.0) Eosinophils # (Auto) 0.3 K/uL (0.0-0.5) Basophils # (Auto) 0.0 K/uL (0.0-0.1) Nucleated RBC Absolute Count (auto) 0.00 K/uL Prothrombin Time 12.0 seconds (12.0-14.4) Prothromb Time International Ratio 0.89 Activated Partial Thromboplast Time 28 seconds (23-35) Blood Gas Patient Temperature 97.2 DEGREES Venous Blood pH 7.36 (7.31-7.41) Venous Blood Partial Pressure CO2 49 mmHg Venous Blood Partial Pressure O2 < 35 mmHg Venous Blood HCO3 28 mmol/L Venous Blood Oxygen Saturation 54 % Venous Blood Base Excess 2 mmol/L Oxygen Liters/Minute 3l Glomerular Filtration Rate Calc > 60.0 Lactate 1.2 mmol/L (0.7-2.1) Calcium Level 9.4 mg/dl (8.4-10.2) Total Bilirubin 0.4 mg/dl (0.2-1.3) Aspartate Amino Transf (AST/SGOT) 32 U/L (0-35) Alanine Aminotransferase (ALT/SGPT) 55 U/L (0-56) Alkaline Phosphatase 80 U/L (0-126) Troponin I < 0.012 ng/ml B-Type Natriuretic Peptide 11 pg/ml (0-100) Total Protein 6.8 g/dl (6.3-8.2) Albumin 3.8 g/dl (3.5-5.0) Coagulation Test 10/19/18 16:17 Prothrombin Time 12.0 seconds Prothromb Time International Ratio 0.89 Activated Partial Thromboplast Time 28 seconds EKG/Imaging Imaging PATIENT NAME: Vikash Grijalva : 1940 MR: [id number] V: [id number] EXAM DATE: [id number] ORDERING PHYSICIAN: FRANK WARREN TECHNOLOGIST: Location: [facility] Patient: Vikash Grijalva : 1940 Visit/Account:[id number] Date of Sevice: 10/19/2018 Exam type: CHEST SINGLE AP History: Shortness of breath, respiratory distress Comparison: 10/09/2016. Findings: Lungs are hyperinflated. Linear scarring or atelectasis left lung base is stable from prior. No new infiltrate, pleural effusion or pneumothorax. Heart size is normal. The osseous structures are unremarkable. IMPRESSION: 1. No acute cardiopulmonary disease. ED Course/Re-evaluation ED Course Patient is a 78-year-old male here with complaints of cough, shortness of breath setting of COPD, active smoker, on supplemental oxygen 3 L nasal cannula baseline. Patient was given DuoNeb, methylprednisolone, IV fluid bolus. Chest x- ray showed no acute findings. Patient will be treated for COPD exacerbation. Labs unremarkable. Troponin negative, there is no leukocytosis. vbg unremarkable, lactate normal. Return precautions were provided, close PCP follow-up recommended. Prescription provided for remainder of azithromycin treatment, prednisone, albuterol inhaler. Decision to Disposition Date: Oct 19, 2018 Decision to Disposition Time: 16:54 Depart Departure Latest Vital Signs Vital Signs Date Time Temp Pulse Resp B/P (MAP) Pulse Ox O2 Delivery O2 Flow Rate FiO2 10/19/18 16:05 3.0 10/19/18 16:02 97.2 71 20 148/69 96 Nasal Cannula Impression: Primary Impression: COPD exacerbation Additional Impression: Shortness of breath Condition: Improved Disposition: HOME OR SELF-CARE New Scripts Albuterol Sulfate (PROVENTIL HFA) 6.7 Gm Inh 2 PUFF INH Q4-6H PRN for DYSPNEA, #1 INH Prov: FRANK WARREN DO 10/19/18 Prednisone (PREDNISONE) 50 Mg Tablet 50 MG PO QDAY for 4 Days, #4 TAB Prov: FRANK WARREN S DO 10/19/18 Azithromycin (ZITHROMAX) 250 Mg Tablet 1 TAB PO QDAY for 4 Days, #4 TAB Prov: FRANK WARREN S DO 10/19/18 Patient Instructions: COPD (Chronic Obstructive Pulmonary Disease) (ED) Additional Instructions: Please drink plenty of water. Please take prednisone 1 tablet daily for 4 days, azithromycin 1 tablet daily for 4 days. Please return promptly if you develop fevers, worsening cough, chest pains, abdominal pain, nausea, vomiting. Problem Qualifiers FRANK WARREN DO Oct 19, 2018 16:00
[2018-10-19] MEDS ORDERED: NS(*) 0.9% 1000 ML BAG 1,000 ML IV ONE (16:07)
[2018-10-19] MEDS ORDERED: methylPREDNIS SUCC 125 MG/2ML IVP ONE (16:10)
[2018-10-19] MEDS: ALBUTEROL/IPRATROPIUM 3 ML NEB NEB SCH ×3 (16:27→17:05)
[2018-10-19 16:28] LABS: PLATELET COUNT, AUTOMATED 189 K/uL (150-450)
[2018-10-19 16:40] LABS: INR 0.89
--- NOTE | 2018-10-19 16:47 | RADIOLOGY IMAGING REPORT ---
FACILITY: [facility] PATIENT NAME: Vikash Grijalva : 1940 MR: [id number] V: [id number] EXAM DATE: ORDERING PHYSICIAN: FRANK WARREN TECHNOLOGIST: [place] [facility] [place] Patient: Vikash Grijalva : 1940 Visit/Account:[id number] Date of Sevice: 10/19/2018 Exam type: CHEST SINGLE AP History: Shortness of breath, respiratory distress Comparison: 10/09/2016. Findings: Lungs are hyperinflated. Linear scarring or atelectasis left lung base is stable from prior. No new infiltrate, pleural effusion or pneumothorax. Heart size is normal. The osseous structures are unremarkable. IMPRESSION: 1. No acute cardiopulmonary disease. Report Dictated By: Marcellus Underwood MD at 10/19/2018 4:41 PM Report E-Signed By: Marcellus Underwood MD at 10/19/2018 4:42 PM WSN:[id number]
[2018-10-19] MEDS ORDERED: AZIT-1 PO (16:52)
[2018-10-19] MEDS ORDERED: ALB6.7R INH (16:52)
[2018-10-19] MEDS ORDERED: PRED50TA22 PO (16:52)
[2018-10-19] MEDS ORDERED: AZITHROMYCIN 250 MG TAB PO ONE (16:55)
[2018-10-19 17:00] VITALS: BP 135/65
== END 2018-10-19 17:12 | disposition home or self-care (01) ==
LOC: ER 16:02
DX: J44.1 Chronic obstructive pulmonary disease with (acute) exacerbation (principal); R06.02 Shortness of breath; F17.210 Nicotine dependence, cigarettes, uncomplicated
CPT/HCPCS: 71045; 82803; 83605; 83880; 84484; 85025; 85610; 85730; 94640; 96361; 96374; 99283; J2930; J7030; J7620; Q0144; 82040; 82247; 82310; 82374; 82435; 82565; 82947; 84075; 84132; 84155; 84295; 84450; 84460; 84520

== ENCOUNTER 2018-10-28 15:00 | Outpatient (RCR) | payer MEDICARE, BC ==
[2018-10-21 08:55] VITALS: BP 135/70
[~2018-10-28 15:00] MED LIST changes: +ALB6.7R INH; +AZIT-1 PO; +PRED50TA22 PO
[2018-10-28 15:07] VITALS: BP 149/72
--- NOTE | 2018-10-28 22:38 | ONCOLOGY FOLLOW UP NOTE ---
EVENT DATE: October 28, 2018 REASON FOR VISIT Oncology surveillance for prostate carcinoma. ONCOLOGY HISTORY 1. Diagnosis of Theodore 8, poorly differentiated adenocarcinoma of the prostate, along with Tracey 7 tumor, high volume. Cancer diagnosed 06/08/14 with ultrasound biopsy. Pre-biopsy PSA of 5.9 ng/mL. 2. Status post external beam radiation therapy with IMRT to 7920 cGy in 39 fractions, completed 07/25. INTERVAL HISTORY Mr. Grijalva was seen accompanied by his spouse. Clinically doing well. Excellent voiding function. Voids every two to three hours during the day and gets up only once at night. No dysuria. Denies any new bone pain. PSA was obtained prior to this appointment, which was undetectable at less than 0.06 on 10/21/18. MEDICATIONS 1. Sertraline 100 mg a day. 2. Lisinopril 10 mg a day. 3. Aspirin 81 mg a day. 4. Amitriptyline 25 mg at bedtime. 5. Chlordiazepoxide 10 mg at bedtime. 6. Albuterol sulfate. ALLERGIES None. SOCIAL HISTORY Ongoing smoking use, one pack per day. FAMILY HISTORY Father had COPD and in his 50s. COMPREHENSIVE REVIEW OF SYSTEMS Notable for recent oculoplastic surgery. Patient had eyelashes irritating his sclerae and had surgery yesterday. Temporarily has some bruising. Intermittent cough. PAST MEDICAL HISTORY 1. Prostate carcinoma. 2. Hypertension. 3. Hypercholesterolemia. 4. History of depression. SURGICAL HISTORY 1. Prostate biopsy. 2. Recent oculoplastic surgery. PHYSICAL EXAMINATION GENERAL: Pleasant 78-year-old male. VITAL SIGNS: Blood pressure 149/72, pulse 72, respirations 16. Oxygen at 2L. LYMPHATICS: No peripheral lymphadenopathy. LUNGS: Expiratory rhonchi bilaterally. HEART: Sounds regular. ABDOMEN: Soft. No gross organomegaly, mass, or tenderness. RECTAL: Deferred as PSA is undetectable. Remainder of the clinical exam was negative. IMPRESSION A 78-year-old gentleman who is 4-1/2 years remote from the treatment program. He is doing exceptionally well with undetectable PSA despite having a Theodore 7 and 8, poorly differentiated prostate malignancy. Overall, I am pleased with his course to date. PLAN He will follow up with Dr. Bradford in April, and I will see him for final appointment in 12 months. Patient had a normal CBC and CMP as well today. All questions answered to his satisfaction over a 30-minute followup appointment. Greater than 20 minutes were spent face to face with the patient. OMERO
== END 2018-11-05 15:35 | disposition home or self-care (01) ==
LOC: RAON 15:00
PROVIDERS: ATTEND Radiology Radiation Oncology
DX: Z85.46 Personal history of malignant neoplasm of prostate (principal); Z92.3 Personal history of irradiation; Z79.899 Other long term (current) drug therapy
CPT/HCPCS: 36415; 84153; 99212